=== PATIENT | female | born 1985 | race African-American/Black ===

== ENCOUNTER 2016-07-19 17:03 | Emergency (ER) | payer MEDICAID ==
[~2016-07-19] VITALS: Ht 152.4 cm; Wt 70.0 kg
[~2016-07-19 17:03] MED LIST: ALBU1AER INH; BACT800T5 PO; NAPR500 PO; PRED50 PO; ZITH250T PO
[2016-07-19 17:06] VITALS: BP 136/89; PULSE 80; RESP 12; TEMP 99; O2SAT 97
--- NOTE | 2016-07-19 17:42 | PD ---
HPI Chief Complaint: Allergic/Adverse Reaction Time Seen by Provider: 17:40 Travel History International Travel<30 days: No Contact w/Intl Traveler<30days: No Traveled to known affect area: No History of Present Illness HPI 30-year-old female presents to the emergency department for evaluation of mouth pain and vaginal swelling that started 2 days ago. Patient states she has trouble eating and drinking due to the pain. Patient states that her lips were swollen, but this is resolving. She has been taking Benadryl [id number]. Patient states that she was seen in May for urinary tract infection and was prescribed Bactrim. However, she lost prescription, and recently found it. Therefore, she started taken the antibiotic. She stopped taking it 2 days ago when she started with the mouth pain and vaginal swelling. Patient denies any other complaints at this time. Patient denies . Patient reports 1 sexual partner and denies any risk for STD. PFSH Past Medical History Diminished Hearing: No Migraines: Yes Seizures: Yes (As child) Sickle Cell Disease: Yes (Trait) ?: Not : 2 Para: 2 Miscarriage: 0 : 0 Tubal Ligation: Yes Past Surgical History Section: Yes (X2) Gynecologic Surgery: Yes (tubal ligation) Social History Alcohol Use: Yes (Occ.) Tobacco Use: Yes (1 pack every 1.5-2 days) Substance Use: No (DENIES USE) Allergies-Medications (Allergen,Severity, Reaction): Coded Allergies: Codeine (Verified Allergy, Severe, Hives, 06/05/16) Penicillin (Verified Allergy, Severe, HIVES, 06/05/16) Mcgrath (Verified Allergy, Severe, Itching, 06/05/16) TURKEY RXN = ITCHING Reported Meds & Prescriptions Reported Meds & Active Scripts Active Naprosyn (Naproxen) 500 Mg Tab 500 Mg PO Q12HR PRN Bactrim DS (Sulfamethoxazole-Trimethoprim) 800-160 Mg Tab 1 Tab PO BID Proair Hfa (Albuterol Sulfate) 8.5 Gm Aero 2 Puff INH Q4HR PRN * SHAKE WELL BEFORE USE * Deltasone 50 Mg50 Mg 50 Mg Tab 50 Mg PO DAILY 5 Days Zithromax Z-Celestine (Azithromycin) 250 Mg Tab 250 Mg PO DIRECTED 500 MG (2 TABLETS) PO ON DAY 1, THEN 250 MG (1 TABLET) PO ON DAYS 2 TO 5. Review of Systems Except as stated in HPI: all other systems reviewed are Neg Physical Exam Narrative GENERAL: Well-developed well-nourished female patient, ambulatory. Afebrile. SKIN: Warm and dry. HEAD: Normocephalic. Atraumatic. ENT: Mucosa pink and moist. No erythema or exudates. Mucosa has white coating with multiple macerations. No uvular edema. No uvular, palatal, or tonsillar deviation. Airway patent. Nasal turbinates appear normal without nasal blood, purulent drainage or septal hematoma. Bilateral tympanic membranes are clear without erythema or perforation. EYES: No scleral icterus. No injection or drainage. NECK: Supple, trachea midline. No JVD or lymphadenopathy. CARDIOVASCULAR: Regular rate and rhythm without murmurs, gallops, or rubs. RESPIRATORY: Breath sounds equal bilaterally. No accessory muscle use. Lungs sounds clear to auscultation. GASTROINTESTINAL: Abdomen soft, non-tender, nondistended. MUSCULOSKELETAL: No cyanosis, or edema. BACK: Nontender without obvious deformity. No CVA tenderness. GENITOURINARY: Normal external genitalia without lesions or erythema. Vaginal vault with white drainage noted. No blood.. Cervical os was closed without drainage. No cervical motion tenderness. Uterus nontender and nonenlarged. Bilateral adnexa nontender without masses. Pelvic exam was done with nurse at bedside. Data Data Last Documented VS Vital Signs Date Time Temp Pulse Resp B/P Pulse Ox O2 Delivery O2 Flow Rate FiO2 07/19/16 17:06 99.0 80 12 136/89 97 Room Air Orders Urinalysis - C+S If Indicated (07/19/16 17:39) Ed Urine Pregnancytest Poc (07/19/16 17:39) Gc And Chlamydia Pcr (07/19/16 17:39) Wet Prep Profile (07/19/16 17:39) Urine Culture (07/19/16 18:30) Azithromycin Powd Pack (Zithromax Powd P (07/19/16 20:15) Rocephin 250mg Vial Im X 1 (07/19/16 20:15) Lidocaine 1% Inj (50 Ml) (Xylocaine 1% I (07/19/16 20:15) Ibuprofen (Motrin) (07/19/16 20:15) Labs Laboratory Tests Test 07/19/16 07/19/16 18:30 18:55 Urine Color LIGHT-YELLOW Urine Turbidity HAZY Urine pH 6.0 Urine Specific [place] 1.005 Urine Protein NEG mg/dL Urine Glucose (UA) NEG mg/dL Urine Ketones NEG mg/dL Urine Occult Blood NEG Urine Nitrite NEG Urine Bilirubin NEG Urine Urobilinogen LESS THAN 2.0 MG/DL Urine Leukocyte Esterase LARGE Urine RBC 2 /hpf Urine WBC 44 /hpf Urine Squamous Epithelial 6 /hpf Cells Urine Bacteria FEW /hpf Urine Mucus FEW /lpf Microscopic Urinalysis Comment CULTURE INDICATED Clue Cells (Wet Prep) NONE SEEN Vaginal Trichomonas (Wet Prep) PRESENT Vaginal Yeast (Wet Prep) NONE SEEN MDM Medical Decision Making Medical Screen Exam Complete: Yes Emergency Medical Condition: Yes Medical Record Reviewed: Yes Differential Diagnosis Oral candidiasis versus vaginal candidiasis versus allergic reaction Narrative Course 30-year-old female reports mouth pain and swelling as well as vaginal swelling that started 2 days ago after starting a new antibiotic. Physical exam is consistent with oral candidiasis. UA, UPT, wet prep, swab for chlamydia/ gonorrhea are ordered and pending. UA shows large leukocyte esterase, 44 wbc's. UPT is negative. Wet prep is negative for bacterial vaginosis and yeast, positive for Trichomonas. Blood glucose is 89. I discussed the physical findings and exam results of my attending physician, Dr. Carrillo who agrees with plan and disposition. Patient is given Rocephin 250 mg IM and azithromycin 1 g by mouth. She is requesting pain medication. Patient is given ibuprofen 800 mg by mouth. Patient will be discharged prescription for Macrobid for UTI, nystatin swish and swallow, Flagyl. She is instructed not to any alcohol on Flagyl. Patient is agreeable to this plan. Patient is instructed to follow with her primary care physician or health department for further workup including testing for HIV as it is unusual for patient to have thrush. The patient was discharged in stable condition with instructions, including return instructions and follow up instructions. Diagnosis Primary Impression: Trichomonas vaginitis Additional Impression: Oral candidiasis Referrals: Primary Care Physician call for appointment Patient Instructions: General Instructions, Sexually Transmitted Diseases (ED) , Urinary Tract Infection in Women (ED) Additional Instructions: Take Macrobid as directed until gone. Take Flagyl as directed until gone. Use nystatin as directed. Follow-up with health Department or with your primary care physician for further testing including testing for HIV. Have all sexual partners tested and treated before having sex. Follow-up with your primary care physician. Return to the emergency department for any acute worsening of symptoms. Med/Other Pt SpecificInfo: Prescription(s) given Scripts Nystatin Liq 100,000 unit/ml Susp5 Ml SWISH-SWAL QID 7 Days Ref 0 Prov:Georgia Norwood 07/19/16 Nitrofurantoin Monohydrate Macrocrystals (Macrobid)100 Mg [id number] Mg PO BID 7 Days Ref 0 Prov:Georgia Norwood 07/19/16 Metronidazole (Flagyl)500 Mg [id number] Mg PO BID 7 Days Ref 0 Prov:Georgia Norwood 07/19/16 Disposition: 01 DISCHARGE HOME Condition: Stable Georgia Norwood Jul 19, 2016 17:42
[2016-07-19 19:39] LABS: BACTERIA, URINE FEW /hpf; BLOOD, URINE NEG (NEG); GLUCOSE,URINE NEG (NEG); KETONE, URINE NEG (NEG); MUCUS URINE FEW /lpf (OCC); NITRITE,URINE NEG (NEG); SQUAMOUS EPITHELIAL CELL URINE 6 /hpf (0-5); URINE COLOR LIGHT-YELLOW (YELLW/STRAW)
[2016-07-19 19:40] LABS: COMMENT (UR) CULTURE INDICATED; CULTURE IF INDICATED CULTURE INDICATED
[2016-07-19] MEDS ORDERED: METR-1 PO (20:14)
[2016-07-19] MEDS ORDERED: MACR100C2 PO (20:14)
[2016-07-19] MEDS ORDERED: AZITHROMYCIN PWD FOR SUSP 1 GM PACKET PO ONE (20:15)
[2016-07-19] MEDS ORDERED: IBUPROFEN 800 MG TAB PO ONE (20:15)
[2016-07-19] MEDS ORDERED: cefTRIAXone 250 MG VIAL IM ONE (20:15)
[2016-07-19] MEDS ORDERED: LIDOCAINE HCL 1% 50 ML VIAL IM ONE (20:15)
[2016-07-19] MEDS ORDERED: NYST1000 SWISH-SWAL (20:16)
[2016-07-19 20:50] LABS: CHLAMYDIA PCR NOT DETECTED (NOT DETECT); NEISSERIA PCR NOT DETECTED (NOT DETECT)
== END 2016-07-19 21:13 | disposition home or self-care (01) ==
LOC: NETRI 17:03
DX: A59.9 Trichomoniasis, unspecified (principal); N76.0 Acute vaginitis; B37.0 Candidal stomatitis; B96.89 Other specified bacterial agents as the cause of diseases classified elsewhere; D57.3 Sickle-cell trait; F17.210 Nicotine dependence, cigarettes, uncomplicated; Z88.0 Allergy status to penicillin
CPT/HCPCS: 81001; 84703; 87086; 87210; 87491; 87591; 96372; 99283; J0696

== ENCOUNTER 2017-02-26 20:45 | Emergency (ER) | payer MEDICAID ==
[~2017-02-26 20:45] MED LIST changes: +MACR100C2 PO; +METR-1 PO; +NYST1000 SWISH-SWAL
[2017-02-26 20:46] VITALS: BP 163/94; PULSE 71; RESP 13; TEMP 98.2; O2SAT 100
[2017-02-26] MEDS ORDERED: ALBUAER3 INH (22:44)
[2017-02-26] MEDS ORDERED: DICL50TA3 PO (22:44)
[2017-02-26] MEDS ORDERED: BACT800T5 PO (22:44)
[2017-02-26] MEDS ORDERED: SULFAMETHOXAZOLE-TRIMETHOPRIM DS 800-160 MG TAB PO ONE (22:45)
[2017-02-26] MEDS ORDERED: NAPROXEN 500 MG TAB PO ONE (22:45)
--- NOTE | 2017-02-26 22:57 | PD ---
HPI Chief Complaint: Pain: Acute or Chronic Time Seen by Provider: 22:36 Travel History International Travel<30 days: No Contact w/Intl Traveler<30days: No Traveled to known affect area: No History of Present Illness HPI 31-year-old white female presents to emergency Department with complaints of chest wall pain. She states that she's been having pain on and off now for over a week. Symptoms are worse when she takes a deep breath or moves. She also has pain when she pushes on her chest replaced down. She admits to having some wheezing. She does continue to smoke. She has had a history of reactive airway disease in the past. Patient also complains of a tender lump to her lower back. She states that this is been present now for the past week as well. She denies any fever or chills. She denies any anginal type chest pain. No exertional pain. No nausea or vomiting associated with her pain. No diaphoresis. No leg pain or swelling. She denies . No sedentary activity. 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 [facility] Past Medical History Narrative Medical Seizure disorder, Borderline blood pressure, reactive airway disease Diminished Hearing: No Migraines: Yes Seizures: Yes (As child) Sickle Cell Disease: Yes (Trait) ?: Not LMP: 02/18/17 : 2 Para: 2 Miscarriage: 0 : 0 Tubal Ligation: Yes Past Surgical History Narrative Surgical 2, tubal ligation Section: Yes (X2) Gynecologic Surgery: Yes (tubal ligation) Social History Alcohol Use: Yes (Occ.) Tobacco Use: Yes (1 pack every 1.5-2 days) Substance Use: No (DENIES USE) Allergies-Medications (Allergen,Severity, Reaction): Coded Allergies: codeine (Unverified Allergy, Severe, Hives, 02/26/17) penicillin G (Unverified Allergy, Severe, HIVES, 02/26/17) turkey (Unverified Allergy, Severe, Itching, 02/26/17) TURKEY RXN = ITCHING Reported Meds & Prescriptions Reported Meds & Active Scripts Active No Active Prescriptions or Reported Medications Review of Systems Except as stated in HPI: all other systems reviewed are Neg Physical Exam Narrative GENERAL: Well-developed, well-nourished in no apparent distress. Nontoxic appearing. HEAD: Normocephalic, atraumatic. EYES: Pupils equal round and reactive. Extraocular motions intact. No scleral icterus. No injection or drainage. ENT: Nose clear. Throat without erythema, tonsillar hypertrophy or exudate. Uvula midline. Airway patent. NECK: Trachea midline. Supple, nontender, moves head freely. No central bony tenderness or spasm. CARDIOVASCULAR: Regular rate and rhythm without murmurs, gallops, or rubs. CHEST: Positive anterior chest wall tenderness without deformity or crepitance. No retractions or use of accessory muscles. RESPIRATORY: Few fine x-ray wheezes. No Rales or rhonchi. GASTROINTESTINAL: Abdomen soft, non-tender, nondistended. No hepato-splenomegaly , or palpable masses. No guarding. EXTREMITIES: No clubbing, cyanosis, or edema. No joint tenderness. BACK: Nontender without deformity. No flank tenderness. NEUROLOGICAL: Awake, alert and oriented x 3 .Cranial nerves grossly intact. Motor and sensory grossly within normal limits. Normal speech. Skin: Patient has a 1 cm tender nodular density at the the mid lower lumbar spine region. It is mobile in the skin. Appears to be a sebaceous cyst. Data Data Last Documented VS Vital Signs Date Time Temp Pulse Resp B/P (MAP) Pulse Ox O2 Delivery O2 Flow Rate FiO2 02/26/17 20:46 98.2 71 13 163/94 (117) 100 Orders Orders Electrocardiogram (02/26/17 22:42) Naproxen (Naprosyn) (02/26/17 22:45) Sulfamet-Trimeth Ds 800-160 Mg (Bactrim (02/26/17 22:45) MDM Medical Decision Making Medical Screen Exam Complete: Yes Emergency Medical Condition: Yes Medical Record Reviewed: Yes Interpretation(s) EKG shows NSR, no ST elevation or depression, and no arrhythmias. No significant T-wave inversions. Differential Diagnosis MDM: High Differential diagnoses: Pneumonia, bronchitis, URI, asthma, RAD, pleurisy, chest wall pain, sebaceous cyst, abscess Narrative Course Patient's given Bactrim DS by mouth and Naprosyn 500 mg by mouth. This is chest wall pain, reactive airway disease, sebaceous cyst Diagnosis Primary Impression: Chest wall pain Additional Impressions: Reactive airway disease Qualified Codes: J45.20 - Mild intermittent asthma, uncomplicated Sebaceous cyst Patient Instructions: General Instructions Departure Forms: Tests/Procedures, Work Release Special Instructions: No work 2 days. Additional Instructions: Rest. Elevation. keep clean and dry. Warm compresses. Stop smoking. Daily wound care with soap, water and Neosporin. Diclofenac, Bactrim DS, and pro-air inhaler. Follow-up with a primary care doctor in one week. Return to the ER for any problems. Med/Other Pt SpecificInfo: Prescription(s) given Scripts No Active Prescriptions or Reported Meds Disposition: 01 DISCHARGE HOME (this is a 40 70 47) Condition: Stable Julio César Cortez Feb 26, 2017 22:57
--- NOTE | 2017-02-27 13:55 | EKG ---
Date Performed: 02/26/2017 Time Performed: 22:57:07 PTAGE: 31 years EKG: SINUS BRADYCARDIA BORDERLINE ECG Compared to prior tracing no significant change PREVIOUS TRACING : 06/06/2016 00.19 DOCTOR: Giuliano Mata Interpretating Date/Time 02/27/2017 13:53:53
== END 2017-02-26 23:41 | disposition home or self-care (01) ==
LOC: NEPD 20:45
DX: R07.89 Other chest pain (principal); J45.20 Mild intermittent asthma, uncomplicated; L72.3 Sebaceous cyst; F17.210 Nicotine dependence, cigarettes, uncomplicated
CPT/HCPCS: 93005; 99283

== ENCOUNTER 2017-09-24 20:19 | Emergency (ER) | payer MEDICAID ==
[~2017-09-24] VITALS: Ht 162.6 cm; Wt 65.6 kg
[2017-09-24 20:42] VITALS: BP 123/92; PULSE 66; RESP 18; TEMP 98.3; O2SAT 100
[2017-09-24] MEDS ORDERED: KETOROLAC TROMETHAMINE 60 MG/2 ML (IM) VIAL IM ONE (21:30)
--- NOTE | 2017-09-24 21:33 | PD ---
HPI Chief Complaint: Left ear pain Time Seen by Provider: 21:08 Travel History International Travel<30 days: No Contact w/Intl Traveler<30days: No Traveled to known affect area: No History of Present Illness HPI 32yo F with no significant PMH presents to the ED for left ear pain for 2 weeks to 1 month. Pt said it would get better with tylenol but would come back and has pain to touch right in front of left ear. The wind makes pain worst. Also with cough and post tussive vomiting. Denies any fever, chest pain, sob, n /v, throat pain, drooling, voice face, trauma, abdominal pain, focal weakness or numbness. PFSH Past Medical History Medical History: Denies Significant Hx Diminished Hearing: No Migraines: Yes Seizures: Yes (As child) Sickle Cell Disease: Yes (Trait) Tetanus Vaccination: < 5 Years Influenza Vaccination: No ?: Unknown : 2 Para: 2 Miscarriage: 0 : 0 Tubal Ligation: Yes Past Surgical History Section: Yes (X2) Gynecologic Surgery: Yes (tubal ligation) Social History Alcohol Use: Yes (Occ.) Tobacco Use: Yes (1 pack every 1.5-2 days) Substance Use: No (DENIES USE) Allergies-Medications (Allergen,Severity, Reaction): Coded Allergies: codeine (Unverified Allergy, Severe, Hives, 02/26/17) penicillin G (Unverified Allergy, Severe, HIVES, 02/26/17) turkey (Unverified Allergy, Severe, Itching, 02/26/17) TURKEY RXN = ITCHING Reported Meds & Prescriptions Reported Meds & Active Scripts Active Tylenol (Acetaminophen) 325 Mg Tab 650 Mg PO Q6H PRN Clindamycin (Clindamycin HCl) 150 Mg Cap 300 Mg PO Q6H 7 Days Review of Systems Except as stated in HPI: all other systems reviewed are Neg Physical Exam Narrative GENERAL: 32yo F in mild distress. SKIN: Focused skin assessment warm/dry. HEAD: Atraumatic. Normocephalic. EYES: Pupils equal and round. No scleral icterus. No injection or drainage. ENT: Right ear: TM wnl. No mastoid ttp. No ttp pulling of external ear. Left ear: TM wnl. No mastoid ttp. +TTP pulling of external ear. +TTP skin immediately in front of left ear. There is no erythema or fluctuance there. Throat: Uvula midline. No tonsillar exudate. NECK: +Left anterior cervical lymphadenopathy that is ttp. MOUTH: Very poor dentition left lower molar. No elevation of tongue. No trismus. CARDIOVASCULAR: Regular rate and rhythm. No murmur appreciated. RESPIRATORY: No accessory muscle use. Clear to auscultation. Breath sounds equal bilaterally. GASTROINTESTINAL: Abdomen soft, non-tender, nondistended. MUSCULOSKELETAL: No obvious deformities. No clubbing. No cyanosis. No edema. NEUROLOGICAL: Awake and alert. No obvious cranial nerve deficits. Motor grossly within normal limits. Normal speech. PSYCHIATRIC: Appropriate mood and affect; insight and judgment normal. Data Data Last Documented VS Vital Signs Date Time Temp Pulse Resp B/P (MAP) Pulse Ox O2 Delivery O2 Flow Rate FiO2 09/24/17 20:42 98.3 66 18 123/92 (102) 100 Orders Orders Chest, Single Ap (09/24/17 ) Influenzae A/B Antigen (09/24/17 21:24) Ketorolac Inj (Toradol Inj) (09/24/17 21:30) Ed Discharge Order (09/24/17 22:44) [facility] Medical Decision Making Medical Screen Exam Complete: Yes Emergency Medical Condition: Yes Differential Diagnosis URI vs. influenza vs. referred tooth pain vs. cellulitis Narrative Course 32yo F with left ear pain for about 1 month. Pt has tenderness on the skin in front of the ear. However, no redness, warmth or signs of skin infection except for tenderness to palpation. Pt may also have refer pain to left ear from poor dentition and advice to follow up with dentist. Pt said she does have occasional left lower tooth pain. No TM erythema or bulging to suggest otitis media. Influenza negative. CXR negative. Pt reevaluated at bedside after toradol and pain has improved. Return precautions given. Diagnosis Primary Impression: Ear pain, left Patient Instructions: General Instructions Departure Forms: Tests/Procedures Additional Instructions: Please follow up with your primary care physician and a dentist in 3-7 days. Return to the ED if symptoms worsen. Med/Other Pt SpecificInfo: Prescription(s) given Scripts Acetaminophen (Tylenol) 325 Mg Tab 650 MG PO Q6H Y for PAIN SCALE 1 TO 4, #20 TAB 0 Refills Prov: Cammie Plascencia DO 09/24/17 Clindamycin (Clindamycin) 150 Mg Cap 300 MG PO Q6H for Infection for 7 Days, #56 CAP 0 Refills Prov: Cammie Plascencia DO 09/24/17 Disposition: 01 DISCHARGE HOME Condition: Stable Cammie Plascencia DO Sep 24, 2017 21:33
--- NOTE | 2017-09-24 21:58 | RADRPT ---
EXAM DATE/TIME: 09/24/2017 21:28 [facility] COMPARISON: CHEST SINGLE AP, February 01, 2009, 16:53. INDICATIONS : Cough, congestion. MEDICAL HISTORY : None. SURGICAL HISTORY : None. ENCOUNTER: Initial ACUITY: 3 days PAIN SCORE: 0/10 LOCATION: Bilateral chest FINDINGS: A single view of the chest demonstrates the lungs to be symmetrically aerated without evidence of mas s, infiltrate or effusion. The cardiomediastinal contours are unremarkable. Osseous structures are intact. CONCLUSION: No acute disease. Radu Grier MD on September 24, 2017 at 21:56 Board Certified Radiologist. This report was verified electronically.
[2017-09-24] MEDS ORDERED: TYLE325T PO (22:43)
[2017-09-24] MEDS ORDERED: CLIN150C14 PO (22:43)
== END 2017-09-24 22:48 | disposition home or self-care (01) ==
LOC: PHED 20:19 → PHEFT 22:48
DX: H92.02 Otalgia, left ear (principal); R05 Cough; D57.3 Sickle-cell trait; F17.200 Nicotine dependence, unspecified, uncomplicated
CPT/HCPCS: 71045; 87804; 96372; 99284; J1885